=== PATIENT | male | born 1985 | race Caucasian/White ===

== ENCOUNTER 2020-05-05 16:52 | Emergency (ER) | payer MEDICAID ==
[~2020-05-05] VITALS: Ht 190.5 cm; Wt 83.2 kg
[~2020-05-05 16:52] MED LIST: CLON-529 PO
[2020-05-05] MEDS ORDERED: IBUP-1985 PO (17:12)
[2020-05-05] MEDS ORDERED: METH-360 PO (17:12)
[2020-05-05 18:03] VITALS: BP 135/89
== END 2020-05-05 18:06 | disposition home or self-care (01) ==
LOC: ER 16:52
DX: S90.32XA Contusion of left foot, initial encounter (principal); R58 Hemorrhage, not elsewhere classified; G89.29 Other chronic pain; F12.90 Cannabis use, unspecified, uncomplicated; Z56.0 Unemployment, unspecified; Z79.899 Other long term (current) drug therapy; V03.99XA Pedestrian with other conveyance injured in collision with car, pick-up truck or van, unspecified whether traffic or nontraffic accident, initial encounter; Y93.89 Activity, other specified; Y92.89 Other specified places as the place of occurrence of the external cause; Y99.8 Other external cause status
CPT/HCPCS: 73630; 76705; 99284

== ENCOUNTER 2020-11-26 09:57 | Emergency (ER) | payer MEDICAID ==
[~2020-11-26] VITALS: Ht 188 cm; Wt 84.1 kg
[2020-11-26] MEDS ORDERED: PENI500T2 PO (11:11)
== END 2020-11-26 11:29 | disposition home or self-care (01) ==
LOC: ER 09:58
DX: J02.0 Streptococcal pharyngitis (principal); G89.29 Other chronic pain; M54.9 Dorsalgia, unspecified; Z56.0 Unemployment, unspecified
CPT/HCPCS: 87880; 99283